=== PATIENT | male | born 1995 | race African-American/Black ===

== ENCOUNTER 2017-10-15 08:51 | Emergency (ER) | payer OTHER ==
[~2017-10-15] VITALS: Ht 172.7 cm; Wt 109.1 kg
[2017-10-15] MEDS ORDERED: SULFAMETHOX/TRIMETH DS 800-160 MG/TABLET PO ONE (09:45)
[2017-10-15] MEDS ORDERED: CefTRIAXone SODIUM 1 GM/VIAL IM ONE (09:45)
[2017-10-15] MEDS ORDERED: LIDOCAINE HCL/PF 1% 2 ML VIAL IM ONE (09:45)
[2017-10-15] MEDS ORDERED: HYDROCODONE/ACETAMINOPHEN 5-325 MG TABLET PO ONE (09:45)
[2017-10-15 10:37] VITALS: BP 156/75
== END 2017-10-15 10:48 | disposition home or self-care (01) ==
LOC: EMS 08:53
DX: K61.1 Rectal abscess (principal)
CPT/HCPCS: 96372; 99283; J0696; J3490

== ENCOUNTER → 2018-12-27 | Outpatient (CLI) | payer OTHER | END | disposition home or self-care (01) | LOC: EMPHLTH 10:13 | PROVIDERS: ATTEND Internal Medicine | DX: Z02.1 Encounter for pre-employment examination (principal) | CPT/HCPCS: 86706; 86735; 86762; 86765; 86787 ==

== ENCOUNTER 2024-12-18 16:00 | Emergency (ER) | payer MEDICAID, OTHER ==
[~2024-12-18] VITALS: Ht 175.3 cm; Wt 104.5 kg
[2024-12-18 16:04] VITALS: BP 121/74; PULSE 81; RESP 18; TEMP 98.6; O2SAT 96
[2024-12-18] MEDS: HYDROCODONE/ACETAMINOPHEN 10-325 MG TABLET PO ONE (16:38)
[2024-12-18] MEDS ORDERED: AMOX-457 PO (17:07)
== END 2024-12-18 17:25 | disposition home or self-care (01) ==
LOC: EMS 16:00
DX: S61.452A Open bite of left hand, initial encounter (principal); S51.851A Open bite of right forearm, initial encounter; W54.0XXA Bitten by dog, initial encounter; Y93.89 Activity, other specified; Y92.89 Other specified places as the place of occurrence of the external cause; Y99.8 Other external cause status
CPT/HCPCS: 99283